=== PATIENT | female | born 1955 | race Caucasian/White ===

== ENCOUNTER → 2017-10-02 | Outpatient (CLI) | payer BC ==
--- NOTE | 2017-10-02 12:57 | EST ---
EXERCISE STRESS AGE: 61 SEX: F HT: 64" WT: 195 PROTOCOL: Eddy Exercise Stress Test STAGE: II DURATION OF EXERCISE: 6:30 HEART RATE REST: 71 BLOOD PRESSURE REST: 101/72 MAXIMUM HEART RATE ACHIEVED: 140 MAXIMUM BLOOD PRESSURE: 192/83 85% MPHR: 135 100% MPHR: 159 METS: 7.9 INDICATIONS: Chest pain. CLINICAL INFORMATION: Baseline EKG revealed normal sinus rhythm without significant ST-T changes. Patient walked for 6 minute 30 seconds, achieved a maximum heart rate 140 beats per minute which is more than 85% of her predicted maximal heart rate. She developed fatigue and shortness of breath, but did not have any angina or arrhythmia. Rare PVCs were noted. By EKG criteria, this is a negative stress test with fair exercise capacity. Peak blood pressure was 192/83 and resting blood pressure was 101/72. Resting heart rate was 71 beats per minute. IMPRESSION: Fair exercise capacity with a negative stress test by EKG criteria. MMODL / IJN: [id number] /
== END ==
LOC: RADNMMAIN 10:10
PROVIDERS: ATTEND Family Medicine
DX: I20.9 Angina pectoris, unspecified (principal)
CPT/HCPCS: 93017

== ENCOUNTER 2017-10-16 08:17 | Day surgery (SDC) | payer BC ==
[2017-10-10 10:48] VITALS: BMI 33.5
[~2017-10-16 08:17] MED LIST: DEXAMETHASONE SOD PHOSPHATE 10 MG/ML 1 ML VIAL IV ONE; LACTATED RINGERS 1,000 ML IV SCH; ONDANSETRON 4 MG/2 ML VIAL IVP ONE; ONDANSETRON 4 MG/2 ML VIAL IVP PRN
[2017-10-16] MEDS ORDERED: PROPOFOL 10 MG/ML 20 ML VIAL IV ONE (09:38)
--- NOTE | 2017-10-16 10:17 | P.PCN ---
Date of Procedure: 10/16/17 Procedure(s) Performed: Procedure: Colonoscopy and biopsy. Preoperative diagnosis: Screening for neoplasia. Postoperative diagnosis: Sigmoid diverticulosis with no evidence of acute diverticulitis, strictures, polyps or cancer. Preparation: HalfLytely prep. Sedation: Was provided by anesthesia. Brief clinical history: The patient is 61-year-old female who is referred for this evaluation for screening for neoplasia. She has no abdominal complaints, bleeding or anemia. No family history of colon cancer. This would be her first colonoscopy. Procedure: With the patient on her left lateral decubitus position and after informed consent and adequate sedation, the perianal area was inspected and it did not show any fissures or fistulas. There were no masses felt on digital rectal examination. The Olympus CFQ 160L video colonoscope was then inserted in the rectum in the usual fashion and advanced to the cecum. The mucosa appeared healthy. Several diverticular orifices were seen scattered along the length of the bowel including around the hepatic flexure with no evidence of acute diverticulitis or strictures. I retroflexed the endoscope in the rectum before the endoscope was withdrawn. The patient tolerated the procedure well. Plan: The patient was reassured. Discussed dietary measures. She will follow up with you as planned. And I recommended repeat exam in 10 years.
[2017-10-16] MEDS ORDERED: hydrALAZINE HCL 20 MG/ML 1 ML VIAL IVP ONE (10:22)
[2017-10-16 16:31] VITALS: BP 149/74; PULSE 67; RESP 18
== END 2017-10-16 11:17 | disposition home or self-care (01) ==
LOC: ORWHC2ENDO 08:17
DX: Z12.11 Encounter for screening for malignant neoplasm of colon (principal); K57.30 Diverticulosis of large intestine without perforation or abscess without bleeding; F32.9 Major depressive disorder, single episode, unspecified; Z79.899 Other long term (current) drug therapy
CPT/HCPCS: G0121; J0360; J2704

== ENCOUNTER 2018-04-30 02:18 | Emergency (ER) | payer BC ==
[2018-04-30 02:25] VITALS: BP 137/79; PULSE 94; RESP 18; TEMP 98.5
[2018-04-30] MEDS ORDERED: LIDOCAINE 1% INJ 10MG/ML (20 ML MDV) SQ ONE (02:32)
--- NOTE | 2018-04-30 03:03 | ED ---
Head Injury HPI - General Chief complaint: Head Injury Stated complaint: fall, laceration head Time Seen by Provider: 04/30/18 02:26 Source: patient, RN notes reviewed Mode of arrival: ambulatory Limitations: no limitations - History of Present Illness Initial comments: This is a 62-year-old female presents to the emergency department with chief complaint of fall and right eyebrow laceration. is at bedside and contributes to history. Patient states that she was out drinking with her friends tonight. She states that she was walking outside in the pavement, tripped and fell and lacerated her right eyebrow. She states she believes she may have lacerated it on her eyeglasses. Patient's states that her friends contacted him and then drove her home. He states that the patient slept for a couple of hours and then he brought her into the emergency department. Incident happened at approximately midnight. Patient states that she is up-to-date with her tetanus vaccination stating she received it 3 years ago. She denies any other injury or trauma. Denies loss of consciousness, nausea or vomiting, dizziness or headache. She denies any pain. Denies blood thinner use. Denies fevers or chills, chest pain or shortness of breath, abdominal pain, nausea or vomiting. - Related Data Home Medications Medication Instructions Recorded Confirmed Venlafaxine HCl [Effexor] 75 mg PO HS 10/10/17 04/30/18 traZODone HCL 50 mg PO HS 10/10/17 04/30/18 Allergies/Adverse reactions: Allergies Allergy/AdvReac Type Severity Reaction Status Date / Time No Known Allergies Allergy Verified 04/30/18 02:25 Review of Systems ROS Statement: Those systems with pertinent positive or pertinent negative responses have been documented in the HPI. ROS Other: All systems not noted in ROS Statement are negative. Past Medical History Past Medical History: No Reported History History of Any Multi-Drug Resistant Organisms: None Reported Past Surgical History: Back Surgery, Cholecystectomy, Hysterectomy Past Anesthesia/Blood Transfusion Reactions: No Reported Reaction Past Psychological History: Depression Smoking Status: Current every day smoker Past Alcohol Use History: Occasional Past Drug Use History: None Reported - Past Family History Mother Family Medical History: No Reported History General Exam - General Exam Comments Initial Comments: General: Awake and alert, well-developed; in no apparent distress. Patient is tearful. HEENT: Head normocephalic. There is an approximately 2.0 cm linear laceration to the medial right eyebrow. No active bleeding. No evidence of foreign body. No surrounding ecchymosis, swelling. Pupils are equal, round and reactive to light. Extraocular movements intact. Oropharynx moist without erythema or exudate. Neck: Supple. Normal ROM. Cardiovascular: Regular rate and rhythm. No murmurs, rubs or gallops. Chest symmetrical. Respiratory: Lungs clear to auscultation bilaterally. No wheezes, rales or rhonchi. Normal respiratory effort with no use of accessory muscles. Musculoskeletal: Normal ROM, no tenderness bilateral upper and lower extremities. Ambulating normally. Skin: [place], warm and dry without rashes or lesions. Neurological: Alert and oriented x3. CN II-XII grossly intact. Speech is fluent and answers are appropriate. No focal neuro deficits. Psychiatric: Normal mood and affect. No overt signs of depression or anxiety noted. Limitations: no limitations Course Vital Signs 04/30/18 02:21 Temperature 98.5 F Pulse Rate 94 Respiratory 18 Rate Blood Pressure 137/79 O2 Sat by Pulse 97 Oximetry Procedures - Laceration Laceration #1 Consent Obtained: verbal consent Indication: laceration Site: face (Right medial eyebrow) Size (cm): 2 Description: linear Depth: simple, single layer Anesthetic Used: lidocaine 1% Anesthesia Technique: local infiltration Amount (mls): 3 Pre-repair: wound explored, irrigated extensively, deep structures intact Type of Sutures: nylon Size of Sutures: 6-0 Number of Sutures: 5 Technique: simple, interrupted Patient Tolerated Procedure: well, no complications Medical Decision Making - Medical Decision Making This is a 62-year-old female who presents to the emergency department with chief complaint of fall and eyebrow laceration. Patient was out drinking with her friends this evening, tripped and fell and lacerated her right eyebrow. Denies loss of consciousness, nausea or vomiting, dizziness or headache. Denies blood thinner use. On physical examination, there is an approximately 2.0 cm linear laceration to the medial right eyebrow. No active bleeding. No surrounding ecchymosis or swelling. 5 sutures were placed and patient tolerated well without complication. Recommended removal in 5 days. Vital signs are stable and patient is in no acute distress. She will be discharged home at this time. She is in agreement and voices understanding. All questions were answered. Disposition Clinical Impression: Eyebrow laceration Disposition: HOME SELF-CARE Condition: Good Instructions: Laceration (ED) Additional Instructions: Please have sutures removed in 5 days. Please follow up with primary care provider within 1-2 days. Return to emergency department if symptoms should worsen or any concerns arise. Is patient prescribed a controlled substance at d/c from ED?: No Referrals: Ajit Mtz DO [Primary Care Provider] - 1-2 days Time of Disposition: 03:02
== END 2018-04-30 03:17 | disposition home or self-care (01) ==
LOC: EC 02:18
DX: S01.111A Laceration without foreign body of right eyelid and periocular area, initial encounter (principal); F32.9 Major depressive disorder, single episode, unspecified; F17.200 Nicotine dependence, unspecified, uncomplicated; Z79.899 Other long term (current) drug therapy; W01.198A Fall on same level from slipping, tripping and stumbling with subsequent striking against other object, initial encounter; Y92.009 Unspecified place in unspecified non-institutional (private) residence as the place of occurrence of the external cause; Y93.01 Activity, walking, marching and hiking
CPT/HCPCS: 12011; 99282

== ENCOUNTER → 2021-08-22 | Outpatient (CLI) | payer MEDICARE ==
--- NOTE | 2021-08-22 16:54 | BD ---
EXAMINATION TYPE: Axial Bone Density DATE OF EXAM: 08/22/2021 COMPARISON: NONE CLINICAL HISTORY: Postmenopausal screening Height: 64 Weight: 191.5 FRAX RISK QUESTIONS: Alcohol (3 or more units per day): no Family History (Parent hip fracture): no Glucocorticoids (More than 3mos): no (Ex: prednisone, prednisolone, methylprednisolone, dexamethasone, and hydrocortisone). History of Fracture in Adulthood: no Secondary Osteoporosis: 1. Type 1 Diabetes: no 2. Hyperthyroidism: no 3. Menopause before 45: no 4. Malnutrition: no 5. Chronic liver disease: no Rheumatoid Arthritis: no Current Tobacco Use: yes RISK FACTORS HISTORY OF: Surgery to Spine/Hip(right/left)/Wrist (right/left): yes-disc When: 10 years Family History of Osteoporosis: yes Active: yes Diet low in dairy products/other sources of calcium: no Postmenopausal woman: yes Lost more than 2 inches in height since high school: no MEDICATIONS: blood pressure, sleeping pill Additional History: EXAM MEASUREMENTS: Bone mineral densitometry was performed using the [employer] System. Bone mineral density as measured about the Lumbar spine is: ----- L1-L4(G/cm2): 1.175 T Score Values are as follows: ----- L2: -0.3 ----- L3: 0.2 ----- L4: 0.5 ----- L1-L4: 0.0 Bone mineral density : baseline Bone mineral density about the R hip (g/cm2): 0.827 Bone mineral density about the L hip (g/cm2): 0.871 T Score values are as follows: -----R Neck: -1.5 -----L Neck: -1.2 -----R Total: -0.7 -----L Total: -0.3 Bone mineral density : baseline IMPRESSION: Osteopenia (T Score between -2.5 and -1). There is slightly increased risk of fracture and the patient may be considered for treatment. Re-Screen 2-5 years. NOTE: T-SCORE=SD OF THE YOUNG ADULT MEAN.
--- NOTE | 2021-08-23 11:54 | MM ---
Reason for exam: screening (asymptomatic). Last mammogram was performed 1 year and 2 months ago. History: Patient is postmenopausal. Family history of breast cancer in daughter at age 45 and breast cancer in maternal grandmother at age 40. Took progesterone for 1 year. Physical Findings: A clinical breast exam by your physician is recommended on an annual basis and results should be correlated with mammographic findings. MG 3D Screening Mammo W/Cad Bilateral CC and MLO view(s) were taken. Prior study comparison: June 23, 2020, bilateral MG screening mammo w CAD. September 19, 2016, mammogram, performed at [place]. There are scattered fibroglandular densities. There are benign appearing round calcifications bilaterally. There is no discrete abnormality. ASSESSMENT: Benign, BI-RAD 2 RECOMMENDATION: Routine screening mammogram of both breasts in 1 year.
== END | disposition home or self-care (01) ==
LOC: RADMAMWWP 07:45
PROVIDERS: ATTEND Family Medicine
DX: Z12.31 Encounter for screening mammogram for malignant neoplasm of breast (principal); Z13.820 Encounter for screening for osteoporosis; M85.89 Other specified disorders of bone density and structure, multiple sites; Z78.0 Asymptomatic menopausal state
CPT/HCPCS: 77063; 77067; 77080

== ENCOUNTER → 2022-10-18 | Outpatient (CLI) | payer MEDICARE ==
--- NOTE | 2022-10-21 07:50 | MM ---
Reason for Exam: Screening (asymptomatic). Last mammogram was performed 1 year(s) and 2 month(s) ago. Patient History: Menarche at age 12. First Full-Term at age 17. Left ovary removed at age 54. Right ovary removed at age 54. Hysterectomy at age 54. Postmenopausal. Patient used Progesterone for 1 year. Maternal grandmother had breast cancer, age 40. Daughter had breast cancer, age 45. Risk Values: Vidhya 5 year model risk: 3.1%. NCI Lifetime model risk: 11.0%. Prior Study Comparison: 09/19/2016 Screening Mammogram, [place]. 06/23/2020 Bilateral Screening Mammogram, [facility]. 08/22/2021 Bilateral Screening Mammogram, [facility]. Tissue Density: There are scattered fibroglandular densities. Findings: Analyzed By CAD. There are a few tiny benign-appearing round calcifications scattered throughout the bilateral breasts. There is stable round 7 mm circumscribed mass in the anterior upper-outer aspect left breast unchanged from several prior mammograms. Benign-appearing bilateral axillary lymph nodes are again seen. There is no suspicious new group of microcalcifications or new suspicious mass in either breast. Overall Assessment: Benign, BI-RAD 2 Management: Screening Mammogram of both breasts in 1 year. A clinical breast exam by your physician is recommended on an annual basis and results should be correlated with mammographic findings. Electronically signed and approved by: Mk Luna M.D.
== END | disposition home or self-care (01) ==
LOC: RADMAMWWP 10:47
PROVIDERS: ATTEND Family Medicine
DX: Z12.31 Encounter for screening mammogram for malignant neoplasm of breast (principal); Z78.0 Asymptomatic menopausal state; Z80.3 Family history of malignant neoplasm of breast
CPT/HCPCS: 77063; 77067

== ENCOUNTER → 2024-02-05 | Outpatient (CLI) | payer MEDICARE ==
--- NOTE | 2024-02-06 07:41 | US ---
EXAMINATION TYPE: US kidneys/renal and bladder DATE OF EXAM: 02/05/2024 COMPARISON: NONE CLINICAL INDICATION: Female, 68 years old with history of N17.9 Acute Kidey Failure; Acute kidney brennon lure. EXAM MEASUREMENTS: Right Kidney: 11.8 x 6.0 x 4.7 cm Left Kidney: 12.0 x 5.5 x 5.9 cm Right Kidney: No hydronephrosis or masses seen Left Kidney: Very lobulated contour, no defined masses visualized at this time. Bladder: Appears wnl Bilateral Jets seen: Yes *Hypoechoic area seen within the RUQ near the liver and kidney. Area measures 2.0 x 2.8 x 2.0 cm. IMPRESSION: 1. No solid renal mass, renal calcification, hydronephrosis or perinephric fluid collection. The urin vanna bladder appears normal. 2. Well-circumscribed 2.8 x 2.0 x 2.0 solid mass adjacent to the superior aspect of the right kidney. CT abdomen and pelvis is recommended for further evaluation.
== END | disposition home or self-care (01) ==
LOC: RADUSWWP 15:21
PROVIDERS: ATTEND Family Medicine
DX: N28.89 Other specified disorders of kidney and ureter (principal); N17.9 Acute kidney failure, unspecified
CPT/HCPCS: 76770

== ENCOUNTER → 2024-02-19 | Outpatient (CLI) | payer MEDICARE ==
[2024-02-19 14:42] LABS: African American GFR (CKD) 72 (>60 ml/min/1.73 sqM); Blood Urea Nitrogen 33 mg/dL (7-17); Non-African American GFR(CKD) 63 (>60 ml/min/1.73 sqM)
--- NOTE | 2024-02-19 16:30 | CT ---
EXAMINATION TYPE: CT abdomen pelvis w con DATE OF EXAM: 02/19/2024 COMPARISON: None HISTORY: Right lower back pain with vaginal pain x [address] DLP: 1522 mGycm Automated exposure control for dose reduction was used. TECHNIQUE: Helical acquisition of images was performed from the lung bases through the pelvis. CONTRAST: Performed with Oral Contrast and with IV Contrast, patient injected with 80 mL of Isovue 300. FINDINGS: The lung bases are clear. There is surgical absence of the gallbladder. There is no biliary ductal dilatation. There is no focal mass or organomegaly involving liver, pancreas or spleen. There is a by lobed well-circumscribed 3.8 cm right adrenal mass which most likely represent adrenal adenomas. There is a small 15 mm left adrenal nodule. There is no solid renal mass or hydronephrosis and there is homogeneous contrast enhancement of the r enal parenchyma. The caliber the abdominal aorta is normal is no retroperitoneal adenopathy or hemorr rehan. The bowel loops are normal in caliber and there is no evidence of dilatation or obstruction. No infla mmatory changes are identified in the bowel wall or mesentery. There is no free intraperitoneal air or fluid. No pelvic mass, free fluid, abscess or adenopathy. The osseous structures and soft tissues are intact. IMPRESSION: 3.8 cm well-circumscribed bilobed right adrenal mass most likely representing adenoma. MRI of the adr enals is recommended for confirmation.
== END | disposition home or self-care (01) ==
LOC: RADCTMAIN 14:04
PROVIDERS: ATTEND Family Medicine
DX: E27.8 Other specified disorders of adrenal gland (principal); R93.41 Abnormal radiologic findings on diagnostic imaging of renal pelvis, ureter, or bladder; R10.2 Pelvic and perineal pain; M54.50 Low back pain, unspecified; Z90.49 Acquired absence of other specified parts of digestive tract
CPT/HCPCS: 82565; 84520; 74177; 36415; Q9967

== ENCOUNTER → 2024-03-17 | Outpatient (CLI) | payer MEDICARE ==
--- NOTE | 2024-03-19 10:28 | MR ---
EXAMINATION TYPE: MR abdomen wo con DATE OF EXAM: 03/17/2024 8:15 PM CLINICAL INDICATION:Female, 68 years old with history of R93.41 ABN RADLGC FIND ON DX IMAGING RENAL P ELV, U; PHH, Abnormal CT attn adrenals COMPARISON: CT scan abdomen from 02/19/2024. TECHNIQUE: Multiplanar multi-sequence imaging was performed without contrast. Post contrast imaging was performed. Post IV contrast subtraction images were also submitted for review. IV Contrast: cc none FINDINGS: LOWER CHEST: No gross irregularity. ABDOMEN Liver: No evidence for cirrhosis. Signal dropout on chemical shift out of phase imaging. Gallbladder and Bile ducts: No evidence for ductal dilation, or biliary stricture or evidence of chol edocholithiasis. The gallbladder is surgically absent Pancreas: No ductal dilation. No evidence for solid mass. Spleen: Normal for size Adrenal glands: Right adrenal nodules which demonstrate loss of signal on chemical shift of phase frederick ging measuring 20 and 19 mm as well as on the left measuring 10 mm. Kidneys: No evidence for obstructive uropathy. No suspicious renal masses. Stomach and Bowel: No evidence for bowel wall thickening or evidence for obstruction. Scattered colon ic diverticula. Retroperitoneum/Peritoneum: No evidence of pneumoperitoneum or free fluid. Vasculature: No aortic aneurysm. Musculoskeletal: The osseous structures appear intact. Scattered degeneration changes throughout spin e. Lymph Nodes: No gross evidence for lymphadenopathy. Abdominal wall: Unremarkable. IMPRESSION: 1. Bilateral adrenal nodules most compatible with lipid rich adrenal adenomas. 2. Hepatic steatosis. 3. Colonic diverticulosis.
== END | disposition home or self-care (01) ==
LOC: RADMRIMAIN 18:53
PROVIDERS: ATTEND Family Medicine
DX: K76.0 Fatty (change of) liver, not elsewhere classified (principal); K57.30 Diverticulosis of large intestine without perforation or abscess without bleeding; E27.8 Other specified disorders of adrenal gland; R93.41 Abnormal radiologic findings on diagnostic imaging of renal pelvis, ureter, or bladder
CPT/HCPCS: 74181

== ENCOUNTER → 2024-11-05 | Outpatient (CLI) | payer MEDICARE ==
--- NOTE | 2024-11-05 13:13 | MM ---
Reason for Exam: Screening (asymptomatic). Last mammogram was performed 2 year(s) and 0 month(s) ago. Patient History: Menarche at age 12. First Full-Term at age 17. Left ovary removed at age 54. Right ovary removed at age 54. Hysterectomy at age 54. Postmenopausal. Patient used Progesterone for 1 year. Maternal grandmother had breast cancer, age 40. Daughter had breast cancer, age 45. Risk Values: Vidhya 5 year model risk: 3.2%. NCI Lifetime model risk: 10.1%. Prior Study Comparison: 06/23/2020 Bilateral Screening Mammogram, [facility]. 08/22/2021 Bilateral Screening Mammogram, [facility]. 10/18/2022 Bilateral MG 3D screening mammo w/cad, [facility]. Tissue Density: There are scattered areas of fibroglandular density. Findings: Analyzed By CAD. Chronic nodularity on the left. There is no suspicious group of microcalcifications or new suspicious mass in either breast. Overall Assessment: Benign, BI-RAD 2 Management: Screening Mammogram of both breasts in 1 year. See note below in regards to patient's increased 5 year Vidhya score. Patient should continue monthly self-breast exams. A clinical breast exam by your physician is recommended on an annual basis. This exam should not preclude additional follow-up of suspicious palpable abnormalities. Note on Vidhya scores and lifetime risk: 1. A Vidhya score greater than 3% is considered moderate risk. If this is the case, consider specialist referral to assess eligibility for a risk reducing agent. 2. If overall lifetime risk for the development of breast cancer is 20% or higher, the patient may qualify for future screening with alternating mammogram and breast MRI. [facility], , 11/05/2024 1:10 PM. Electronically signed and approved by: Siomara Velasquez M.D. Radiologist
== END | disposition home or self-care (01) ==
LOC: RADMAMWWP 12:28
PROVIDERS: ATTEND Family Medicine
DX: Z12.31 Encounter for screening mammogram for malignant neoplasm of breast (principal); R92.323 Mammographic fibroglandular density, bilateral breasts; Z78.0 Asymptomatic menopausal state; Z80.3 Family history of malignant neoplasm of breast; Z90.722 Acquired absence of ovaries, bilateral
CPT/HCPCS: 77063; 77067